=== PATIENT | female | born 2000 | race African-American/Black ===

== ENCOUNTER 2023-05-23 10:31 | Emergency (ER) | payer MEDICAID, OTHER ==
[~2023-05-23] VITALS: Ht 157.5 cm; Wt 60.1 kg
[2023-05-23 11:57] VITALS: O2SAT 98
[2023-05-23 11:58] VITALS: BP 134/68; TEMP 98.6
[2023-05-23] MEDS ORDERED: NABU-72 PO (12:15)
[2023-05-23] MEDS ORDERED: AUG875T PO (12:15)
[2023-05-23 12:30] VITALS: PULSE 90; RESP 18; O2SAT 100
[2023-05-24 20:06] LABS: Chlamydia Trachomatis, NAA Negative (Negative); Neisseria gonorrhoeae, NAA Negative (Negative)
== END 2023-05-23 12:35 | disposition home or self-care (01) ==
LOC: ER 10:31
DX: J03.90 Acute tonsillitis, unspecified (principal); Z11.3 Encounter for screening for infections with a predominantly sexual mode of transmission; Z72.89 Other problems related to lifestyle